=== PATIENT | male | born 1985 | race Caucasian/White ===

== ENCOUNTER 2016-04-13 09:36 | Day surgery (SDC) | payer OTHER ==
[2016-04-06 10:45] LABS: APPEARANCE,URINE CLEAR; BILIRUBIN,URINE NEGATIVE (NEGATIVE); GLUCOSE, URINE NEGATIVE (NEGATIVE); KETONES,URINE NEGATIVE (NEGATIVE); LEUKOCYTE ESTERASE,URINE NEGATIVE (NEGATIVE); NITRITE,URINE NEGATIVE (NEGATIVE); PROTEIN,URINE NEGATIVE (NEGATIVE); URINE SPECIFIC GRAVITY 1.021; UROBILINOGEN,URINE NEGATIVE mg/dL (<2.0)
[2016-04-06 10:54] LABS: ABSOLUTE EOSINOPHILS # (AUTO) 0.4 10^3/uL (0.0-0.6); ABSOLUTE LYMPHOCYTES (AUTO) 1.9 10^3/uL (0.5-4.7); ABSOLUTE MONOCYTES (AUTO) 0.4 10^3/uL (0.1-1.4); ABSOLUTE NEUT (AUTO) 2.6 10^3/uL (1.7-8.2); BASOPHILS % (AUTO) 0.6 % (0-2); EOSINOPHILS % (AUTO) 7.8 % (0-6); HEMATOCRIT 44.3 % (37.9-51.0); HEMOGLOBIN 15.4 g/dL (13.5-17.0); HGB HCT DIFFERENCE 1.9; LYMPHOCYTES % (AUTO) 35.8 % (13-45); MEAN CORPUSCULAR HEMOGLOBIN 30.1 pg (27.0-33.4); MEAN CORPUSCULAR HGB CONC 34.8 g/dL (32.0-36.0); MEAN CORPUSCULAR VOLUME 86 fl (80-97); MONOCYTES % (AUTO) 6.9 % (3-13); RED BLOOD COUNT 5.13 10^6/uL (4.35-5.55); RED CELL DISTRIBUTION WIDTH 13.5 % (11.5-14.0); SEGMENTED NEUTROPHILS % (AUTO) 48.9 % (42-78); WHITE BLOOD COUNT 5.3 10^3/uL (4.0-10.5)
[2016-04-06 11:18] LABS: ANION GAP 11 (5-19); BLOOD UREA NITROGEN 16 mg/dL (7-20); CALCIUM 9.9 mg/dL (8.4-10.2); CARBON DIOXIDE 29 mmol/L (22-30); CHLORIDE 103 mmol/L (98-107); CREATININE RESULT 1.06 mg/dL (0.52-1.25); POTASSIUM 4.6 mmol/L (3.6-5.0); SODIUM 143.4 mmol/L (137-145)
[2016-04-06 11:43] LABS: GLUCOSE 79 mg/dL (75-110)
--- NOTE | 2016-04-06 13:24 | EKG REPORT ---
SEVERITY:- OTHERWISE NORMAL ECG - SINUS ARRHYTHMIA, RATE 50-66 : Confirmed by: Robert Dejesus MD 06-Apr-2016 13:23:47
[~2016-04-13 09:36] MED LIST: CEFAZOLIN 2 GM/D5W RTU 2 GM/50 ML RTUPB IV PRN; CEFAZOLIN SODIUM 2 GM in DEXTROSE 5%-WATER 100 ML IV PRN; LACTATED RINGERS 1000 ML IV PRN; LIDOCAINE 0.5% INJ-PF (5 MG/ML) 50 ML SDV SUBCUT PRN
[2016-04-13] MEDS ORDERED: LIDOCAINE 2% INJ-PF (20 MG/ML) 10 ML AMPUL ONE (10:23)
[2016-04-13] MEDS ORDERED: SUCCINYLCHOLINE CHLORIDE INJ 200 MG/10 ML VIAL ONE (10:23)
[2016-04-13] MEDS ORDERED: ONDANSETRON HCL INJ/PF 4 MG/2 ML SDV ONE ×2 (10:23→15:03)
[2016-04-13] MEDS ORDERED: KETOROLAC TROMETHAMINE 60 MG/2 ML SDV ONE (10:23)
[2016-04-13] MEDS ORDERED: NEOSTIGMINE METHYLSULFATE 10 MG/10 ML VIAL ONE (10:23)
[2016-04-13] MEDS ORDERED: GLYCOPYRROLATE INJ 0.4 MG/2 ML VIAL ONE (10:23)
[2016-04-13] MEDS ORDERED: DEXAMETHASONE SOD PHOSPHATE INJ 4 MG/1 ML VIAL ONE (10:23)
[2016-04-13] MEDS ORDERED: BUPIVACAINE HCL 0.5 % INJ/PF 30 ML SDV ONE (11:20)
[2016-04-13] MEDS ORDERED: EPINEPHRINE INJ 30 MG/30 ML VIAL ONE (11:21)
[2016-04-13] MEDS ORDERED: FENTANYL CITRATE INJ/PF 250 MCG/5 ML AMPULE ONE (11:56)
[2016-04-13] MEDS ORDERED: MIDAZOLAM 2 MG/2 ML INJ ONE (11:57)
[2016-04-13] MEDS ORDERED: PROPOFOL INJ 200 MG/20 ML VIAL IV ONE (11:57)
[2016-04-13] MEDS ORDERED: EPHEDRINE SULFATE INJ 50 MG/1 ML AMPULE ONE (11:57)
[2016-04-13] MEDS ORDERED: DEXMEDETOMIDINE INJ 80 MCG/20 ML VIAL IV ONE (11:57)
[2016-04-13] MEDS ORDERED: MEPERIDINE HCL/PF INJ 25 MG/1 ML DISP.SYRIN IV PRN (12:58)
[2016-04-13] MEDS ORDERED: PROMETHAZINE HCL INJ 25 MG/1 ML VIAL IV PRN ×2 (12:58)
[2016-04-13] MEDS ORDERED: OXYCODONE-ACETAMINOPHEN 5-325 MG TABLET PO PRN ×3 (12:58→14:38)
[2016-04-13] MEDS ORDERED: MORPHINE SULFATE 10 MG/ML INJ IV PRN ×2 (12:58→14:38)
[2016-04-13] MEDS ORDERED: DIPHENHYDRAMINE HCL 50 MG/ML VIAL IV PRN (12:58)
[2016-04-13] MEDS ORDERED: FENTANYL CITRATE INJ/PF 100 MCG/2 ML AMPUL IV PRN ×3 (12:58)
--- NOTE | 2016-04-13 14:39 | PDOC DISCHARGE SUMMARY ---
Discharge Summary (SDC) - Discharge Final Diagnosis: Right Shoulder SLAP Tear, Subacromial Bursitis Date of Surgery: 04/13/16 Discharge Date: 04/13/16 Treatment or Instructions: Schedule Follow Up w/ Dr. Yadiel Earl @ [facility] for Surgery to be seen in 10-14 days or as scheduled [place]: [place]: [place]: May remove dressing on postop day #3, keep incision covered and dry. Ice Right Shoulder finger range of motion attempting to make full fist. Stool softener of choice when on pain medication. Prescriptions: Oxycodone HCl/Acetaminophen [Percocet 5-325 mg Tablet] 1 - 2 tab PO ASDIR PRN # 50 tablet PRN Reason: Referrals: BHAVIN FERRARO MD [Primary Care Provider] - Discharge Diet: As Tolerated Respiratory Treatments at Home: Deep Breathing/Coughing Discharge Activity: No Lifting Over 10 Pounds, No Lifting/Push/Pulling Report the Following to Your Physician Immediately: Increase in Pain, Fever over 101 Degrees, Unusual Bleeding, Redness, Swelling, Warmth, Increased Soreness, Numbness, Tingling Sensation
[2016-04-13] MEDS: FENTANYL CITRATE INJ/PF 100 MCG/2 ML AMPUL ONE ×2 (14:44→14:50)
--- NOTE | 2016-04-13 14:47 | Operative Report ---
Operative Report DATE OF SURGERY: 04/13/16 PREOPERATIVE DIAGNOSIS: Right shoulder labral tear POSTOPERATIVE DIAGNOSIS: Right shoulder SLAP tear, subacromial bursitis OPERATION: Right shoulder arthroscopy, subacromial decompression with acromioplasty, open subpectoralis biceps tenodesis SURGEON: BLAZE DE [place] ANESTHESIA: GA COMPLICATIONS: None ESTIMATED BLOOD LOSS: minimal PROCEDURE: Indication for above procedure: 31-year-old male with long-standing history of right shoulder discomfort. Patient attempted conservative measures including anti-inflammatories, activity modification therapy without resolution of his symptoms. He is having right shoulder discomfort for up to a year and thus a MR arthrogram was obtained demonstrating anterior labral tear. He was then sent to me for further evaluation and treatment. We discussed risks and benefits of operative versus nonoperative treatment patient verbalized understanding consented for the procedure. Procedure In Detail: Patient was seen and evaluated in the preoperative holding area. The RIGHT upper extremity was initialized and marked. Patient received 2g of Ancef IV for bacterial prophylaxis. Patient was taken back to the operative room where transferred to the operative table and placed under general anesthesia. Once they were adequately anesthetized the placed in the position. The cervical spine was placed in neutral position the nonoperative left upper extremity and bilateral lower extremities were carefully padded. A surgical team debriefing was performed ensuring all instrumentation was available, the surgical procedure was discussed with possible concerns reviewed. The upper extremity was prepped with ChloraPrep and draped in a sterile fashion. A timeout was done identifying correct patient, procedure and extremity everyone in attendance agree with this and verbalized no concerns. Posterior portal was established the arthroscope introduced into the glenohumeral joint. Via triangulation anterior portal was established and a cannula placed. Diagnostic arthroscopy was performed beginning with the superior labrum which demonstrated fraying and peelback with shoulder flexion/ abduction next rotation. There is no evidence of anterior or posterior labral pathology. There was evidence of anterior synovitis at the level of the SLAP tear extending along the biceps as it entered the groove. No tear of the biceps tendon at the bicipital groove was appreciated. A partial synovectomy was performed within the glenohumeral joint. The subscapularis was visualized without abnormality. Supraspinatus, infraspinatus and teres minor demonstrated no evidence of tear or fraying. I then proceeded with a biceps tenotomy to allow for later tenodesis. The superior labrum was then debrided to a stable base with the shaver. I then turned my attention to the subacromial space and the arthroscope was introduced into the subacromial space. Triangulation was utilized to make a lateral portal. The arthroscopic wand was introduced in the subacromial space there was significant bursitis of the subacromia space. A Subacromial bursectomy was performed was performed until the underlying rotator cuff tendon was visualized. There is no evidence of fraying of the rotator cuff tendon. The coracoacromial ligament was elevated off the anterior acromion but not excised. A spur was identified along the anterior acromion and given the patient's substantial subacromial bursitis I felt patient would benefit from a acromioplasty. Acromioplasty was performed with the bur removing only the small anterior spur. Longitudinal skin incision was made along the inferior third of the pectoralis major. Blunt dissection was performed identifying the inferior border of the pectoralis major. Any peripheral vasculature was carefully coagulated. I then identified the tenotomized long head of the biceps which was retrieved and brought out the wound. The tendon was then secured 2 centimeters distal to the musculotendinous junction with a #2 fiber loop and the remaining diseased portion of the biceps was excised. The Arthrex biceps tenodesis button was then secured to my biceps tendon. Under direct visualization I then cleared an area along the anterior aspect of the humerus and drilled unicortically. The button was then placed into the unicortical hole and the biceps tendon was shuttled to the anterior cortex of the humerus. I then checked stability of the button confirming maximal fixation. Utilizing the free needle one limb of the remaining FiberWire was secured to the biceps providing further fixation. The elbow was then placed through range of motion to ensure appropriate tension of the biceps with flexion and extension. The wound was then copiously irrigated with normal saline. Any peripheral vasculature was carefully coagulated with Bovie cautery. Skin was closed a running subcuticular 3-0 Monocryl suture reinforced with Dermabond and Steri-Strips. The portal holes were closed with Xeroform. 30 mL of 0.5% Marcaine without epinephrine was injected for postoperative pain control. Sponge counts, instrument counts, needle counts counts were correct. Patient was then awoken from anesthesia patient was placed in a Cryo/Cuff and a abduction sling. Transferred from the operating room table to the operating room stretcher. There was no intraoperative complications patient tolerated procedure well stable to PACU. Postoperative plan: Patient will follow-up in 2 weeks at which point we will proceed with wound check. He will begin physical therapy postoperatively avoiding active loading of the biceps tendon but may begin immediate range of motion.
[2016-04-13] MEDS ORDERED: MORPHINE SULFATE 10 MG/ML INJ ONE (15:08)
[2016-04-13] MEDS ORDERED: ACETAMINOPHEN 100 ML IV ONE (15:23)
[2016-04-13] MEDS ORDERED: KETOROLAC TROMETHAMINE INJ/PF 30 MG/1 ML SDV ONE (15:23)
[2016-04-13 17:42] VITALS: BP 121/68
== END 2016-04-13 17:25 | disposition home or self-care (01) ==
LOC: OROUT 09:36
PROVIDERS: ATTEND Orthopaedic Surgery
PROC: 0RBJ4ZZ Excision of Right Shoulder Joint, Percutaneous Endoscopic Approach (ICD-10-PCS; 2016-04-13)
PROC: 0LM30ZZ Reattachment of Right Upper Arm Tendon, Open Approach (ICD-10-PCS; principal; 2016-04-13 11:30)
DX: S43.431A Superior glenoid labrum lesion of right shoulder, initial encounter (principal); X58.XXXA Exposure to other specified factors, initial encounter; M75.51 Bursitis of right shoulder
CPT/HCPCS: 93005; 36415; 85025; 80048; 81001; 71020; 93010; 24340; 29822; L3650; J2250; J1100; J0171; J1885 ×2; J3010 ×2; J2270; J0330; J2405; J2704; J3490 ×2; J0690; J0131; 1630